=== PATIENT | female | born 1955 | race Caucasian/White ===

== ENCOUNTER → 2017-08-09 16:18 | Outpatient (CLI) | payer OTHER, SELFPAY ==
[2017-08-13 11:03] LABS: HPV HC, High Risk Positive (Negative)
== END ==
PROVIDERS: Family Provider Family Medicine; PCP Family Medicine; Visit Provider Obstetrics & Gynecology
DX: R87.610 Atypical squamous cells of undetermined significance on cytologic smear of cervix (ASC-US) (principal)
CPT/HCPCS: 87624; 88175; G0145

== ENCOUNTER → 2018-09-23 12:20 | Outpatient (CLI) | payer OTHER, SELFPAY ==
--- NOTE | 2018-09-23 12:22 | BI_ITS ---
MAMMOGRAPHY - BILATERAL SCREENING REASON FOR EXAM: Female, 62 years old. Routine annual screening examination. PERTINENT HISTORY: Grandmother with breast cancer. TECHNIQUE: Digital bilateral breast ignacio (3D mammographic acquisition) in the CC and MLO projections. 2-D mediolateral oblique (MLO) and craniocaudad (CC) views of both breasts were obtained. CAD: Full Field Digital Mammography with Computer Added Detection was performed. COMPARISON: Comparison is made with prior study of March 01, 2017. FINDINGS: Breast Composition: The breasts are heterogeneously dense, which may obscure small masses. There are no dominant masses or suspicious calcifications. No other significant abnormalities are identified. There has been no significant change since the prior study. BI/SCREENING MAMM (CAD), BILAT IMPRESSION: Stable bilateral screening mammogram. Yearly follow-up mammogram recommended. (A) ASSESSMENT CATEGORY: BIRADS Category 1: Negative. A letter regarding these results will be sent to the patient by the facility within 30 days. Approximately 10% of breast cancers are not detected by mammography. A normal mammogram should not delay biopsy of a clinically suspicious abnormality. [id number] Electronically Signed: Gabo Duque, at 13:48 EDT , Service support ,
== END ==
PROVIDERS: Family Provider Family Medicine; PCP Family Medicine; Referring Provider Obstetrics & Gynecology; Visit Provider Obstetrics & Gynecology
DX: Z12.31 Encounter for screening mammogram for malignant neoplasm of breast (principal)
CPT/HCPCS: 77063; 77067

== ENCOUNTER 2018-12-23 19:42 | Emergency (ER) | payer OTHER, SELFPAY ==
[2018-12-23 19:43] VITALS: BP 176/87; PULSE 109; RESP 16; TEMP 37.2; O2SAT 99; BMI 27.4
--- NOTE | 2018-12-23 20:26 | CT_ITS ---
STUDY: CT FACIAL BONES WITHOUT CONTRAST REASON FOR EXAM: Female, 63 years old. Trauma RADIATION DOSAGE (If Supplied By Facility): CTDIvol = ( 29.38 ) mGy, DLP = ( 540.11 ) mGycm TECHNIQUE: The patient was scanned in a multi detector CT scanner. Sagittal and coronal images were reconstructed. Individualized dose optimization techniques were used for this CT. COMPARISON: None. FINDINGS: Soft tissue swelling of the nose and premaxillary areas. Normal orbital kinsey and orbital contents. There is a mildly depressed fracture of the left nasal bone with associated soft tissue swelling.. Normal facial bones. There is no demonstrated fracture. Normal visualized paranasal sinuses. CT/Sinus/Facial Bone IMPRESSION: Acute mildly depressed fracture of the left nasal bone. No other acute facial bone fractures. Electronically Signed: Graham Aguirre MD at 20:53 EDT , Service support ,
--- NOTE | 2018-12-23 20:26 | CT_ITS ---
STUDY: CT BRAIN WITHOUT CONTRAST REASON FOR EXAM: Female, 63 years old. Trauma RADIATION DOSAGE (If Supplied By Facility): CTDIvol = ( 44.99 ) mGy, DLP = ( 762.36 ) mGycm TECHNIQUE: Transaxial CT imaging of the brain was performed without administration of intravenous contrast material. Individualized dose optimization techniques were used for this CT. COMPARISON: No relevant priors. FINDINGS: Normal soft tissue structures. Normal calvarium. Normal size ventricles and extra-axial spaces for the patient's age. Normal white matter tracts of the cerebral hemispheres. Normal basal ganglia and thalami. Normal brainstem. Normal cerebellum. There is no intracranial hemorrhage. There are no findings of an acute ischemic infarction. Acute depressed fracture of the nasal bones. Normal visualized paranasal sinuses. Partial opacification of left mastoid air cells which may be consistent with inflammatory changes CT/Brain/Head without Contrast IMPRESSION: Normal unenhanced CT scan of the brain. Acute depressed fracture of the nasal bones Electronically Signed: Graham Aguirre MD at 20:51 EDT , Service support ,
[2018-12-23] MEDS: HYDROcodone Bitartrate/Apap 5/325 Tablet PO (20:50)
--- NOTE | 2018-12-23 21:14 | ED.VISSUMM ---
- ER Visit Summary Date of Service: 12/23/18 Chief Complaint: [Head and facial injuries] History of Present Illness: The patient is a 63 F [presents to the emergency department after being struck in the face by her horse's head. Patient states that the horse had put his head down to look at a dog that was passing by when she tried to put something on top of the horse that had of the horse came up and struck her in the face. She got thrown to the ground. No loss of consciousness. Patient is up-to-date on tetanus. She denies any chest pain. She denies abdominal pain.] Physical Examination: [HEENT-PERRLA, EOMI. Cranial nerves II through XII grossly intact. TMs clear. Mucous membranes moist. No adenopathy. Patient has soft tissue swelling over the nose with tenderness palpation over the nasal bones. She has a small 3 mm laceration over the left aspect of the nose. Patient has small amount of blood from the right nasal vault without evidence of septal hematoma. No dental injury noted. Patient has some faint ecchymosis and bruising to the inferior portions of both orbits. She has no C-spine tenderness on palpation. Cardiovascular-regular rate and rhythm without murmur or ectopy Lungs-clear to auscultation, chest wall stable without crepitus or subcu emphysema Abdomen-normoactive bowel sounds, soft, nontender, no rebound or rigidity, no peritoneal signs. Extremities-intact ?4, normal range of motion, normal pulses, atraumatic] Test Results: [CT scan of the brain without contrast was unremarkable. CT scan of the facial bones showed a minimally displaced nasal bone fracture.] Emergency Department Course and Treatment: [He was given [place] for pain.] Treatment Plan: [Give patient a prescription for [place] for pain as well as a prescription for Augmentin. Patient will be given referral to ear nose and throat for follow-up] Disposition: [Discharged home stable condition] Impression: [Head injury Nasal bone fracture line small nasal laceration-no repair necessary] This note was generated with [employer] dictation software. It may contain incorrect words, spelling, and punctuation that were not noted in review of the chart prior to signing ED Disposition - Plan for ED Patient: Referrals: Edgar Garber DO [Primary Care Provider] -
--- NOTE | 2018-12-23 21:17 | DCINST.ED_ITS ---
ED Disposition - Plan for ED Patient: Instructions: FRACTURE, Nose (with X-Ray), HEAD INJURY, No Wake-Up (Adult) Prescriptions: Amox/Clavulanate Tablet [Augmentin Tablet] 875 mg PO Q12H #20 tab Prescription Printed Hydrocodone Bitart/Apap 5-325 [[place] 5MG-325MG] 1 tab PO Q4H PRN PRN 2 Days #14 tab PRN Reason: Pain Prescription Printed Referrals: Edgar Garber DO [Primary Care Provider] - Bar Marrero MD [STAFF PHYSICIAN] - 5-7 Days
[2018-12-23 21:34] VITALS: BP 150/76; PULSE 98; RESP 16; O2SAT 97
== END 2018-12-23 21:34 | disposition home or self-care (01) ==
LOC: ED 20:33
PROVIDERS: Emergency Provider Emergency Medicine; Family Provider Family Medicine; PCP Family Medicine
DX: S02.2XXA Fracture of nasal bones, initial encounter for closed fracture (principal); S01.21XA Laceration without foreign body of nose, initial encounter; W55.12XA Struck by horse, initial encounter; Y93.9 Activity, unspecified; Y92.9 Unspecified place or not applicable; K76.0 Fatty (change of) liver, not elsewhere classified
CPT/HCPCS: 70450; 70486; 99284

== ENCOUNTER 2020-04-26 23:01 | Emergency (ER) | payer OTHER, SELFPAY ==
[2020-04-26 23:02] VITALS: BP 169/100; PULSE 110; RESP 18; TEMP 36.4; O2SAT 100; BMI 27.1
--- NOTE | 2020-04-26 23:08 | ED.RN ---
NO OLD EKGS IN MUSE
--- NOTE | 2020-04-26 23:13 | EKG12_ITS ---
Test Reason : CP Blood Pressure : / mmHG Vent. Rate : 110 BPM Atrial Rate : 110 BPM P-R Int : 176 ms QRS Dur : 084 ms QT Int : 338 ms P-R-T Axes : 063 094 054 degrees QTc Int : [address] abnormality Abnormal ECG Confirmed by MIKE DAMON, CATHLEEN ([id number]), metropolitan editor LYNDSEY HERRERA ([id number]) on 04/30/2020 8:45:32 AM Referred By: ARSEN Confirmed By:CATHLEEN MCKEON MD
[2020-04-26 23:35] LABS: Absolute Lymphocyte Count 1.63 X10^3/uL (0.83-4.51); Absolute Neutrophil Count 8.4 X10^3/uL (2.0-7.7); Basophil# 0.04 X10^3/uL; Basophil% 0.4 % (0-1); Eosinophil# 0.16 X10^3/uL; Eosinophils% 1.4 % (0-5); Hematocrit 46.7 % (37-47); Hemoglobin 15.4 g/dL (12.0-15.0); Lymphocyte # 1.63 X10^3/ul (4.0); Lymphocyte % 14.7 % (19-41); Mean Platelet Vol. 11.2 fl (6.2-12.0); Monocyte# 0.77 X10^3/uL; NRBC Flagged by Analyzer 0 % (0-5); Neutrophil # 8.41 X10^3/uL (2.7-7.7); Platelet Count 209 K/mm3 (150-450); RBC Distribution Width CV 12.9 % (11.6-14.6); RBC Distribution Width SD 47.2 fl (35.1-43.9); Red Blood Count 4.67 M/mm3 (4.2-5.4); White Blood Count 11.1 K/mm3 (4.4-11.0)
[2020-04-26 23:37] LABS: Anion Gap 5 (5-15); BUN 13 mg/dL (7-18); BUN/Creat Ratio 12.7 RATIO (10-20); Calcium,Total 9.2 mg/dL (8.5-10.1); Chloride 109 mmol/L (98-107); Creatinine, Serum 1.02 mg/dL (0.55-1.02); EST Glomerular Filtration Rate 58 mL/min (>60); Est Glom Filt Rate - Afr Amer 70 mL/min (>60); Estimated Creatinine Clearance 46.85 ml/min; Glucose 122 mg/dL (74-106); Potassium 3.4 mmol/L (3.5-5.1); Sodium Level 144 mmol/L (136-145)
[2020-04-27] MEDS: LORazepam 2 MG/ML Syringe 0.5 MG IV (00:14)
[2020-04-27 01:30] VITALS: BP 130/77; PULSE 98; RESP 14; O2SAT 100
--- NOTE | 2020-04-27 02:00 | EKG12_ITS ---
Test Reason : REPEAT CP Blood Pressure : / mmHG Vent. Rate : 105 BPM Atrial Rate : 105 BPM P-R Int : 168 ms QRS Dur : 084 ms QT Int : 338 ms P-R-T Axes : 058 096 056 degrees QTc Int : 446 ms Sinus tachycardia Otherwise normal ECG Confirmed by MIKE DAMON, CATHLEEN ([id number]), field map editor LYNDSEY HERRERA ([id number]) on 04/30/2020 8:45:00 AM Referred By: Confirmed By:CATHLEEN MCKEON MD
--- NOTE | 2020-04-27 02:23 | ED.DCSUM_ITS ---
History of Present Illness Chief Complaint: Chest Pain Informant: Patient Onset: Hours Context: Sudden Onset Timing: Continuous Quality: Pain then pressure Location: Initially left scapula then left chest presently bilateral anterior chest Current Severity: Mild Maximum Severity: Moderate Worsened by: Nothing Relieved by: Nothing Associated Symptoms: Shortness of breath Narrative: Patient is a 64-year-old woman who presents with left scapular pain that radiated anteriorly and now involves the right and left chest anteriorly. She presently describes as pressure. Is no radiation. She does report shortness of breath. She states she gets short of breath when she is anxious and she is presently anxious. She denies fever, chills night sweats. She denies rhinorrhea, congestion postnasal drainage or sore throat. She denies history of VTE. She denies leg pain, swelling discoloration. She has no risk factors for VTE. She denies nausea, vomiting diarrhea. She denies hematemesis, melena medic easier. She denies history of peptic ulcer disease. She denies intolerance to greasy or fried foods. There is no history of trauma. Prior similar symptoms: No Recent Illness/Hospitalization: No - Past Medical History (1) Generalized anxiety disorder Status: Acute (2) History of hypercholesterolemia Status: Acute (3) Personal history of colonic polyps Status: Acute Past Medical History - Allergies and Home Meds Allergies/Adverse Reactions: Allergies estradiol [From Ortho-Prefest] Allergy (Verified 04/26/20 23:02) Unknown ibuprofen [From Advil] Allergy (Verified 04/26/20 23:02) Hives norgestimate [From Ortho-Prefest] Allergy (Verified 04/26/20 23:02) Unknown plastic tape/bandaids Allergy (Uncoded 04/26/20 23:02) Rash Primary Care Physician: Edgar Garber DO [Primary Care Provider] - Prior records reviewed: Yes Surgical History: - - Previous colonoscopies with polypectomy Lives: Spouse/ Significant Other Smoking Status: Former smoker Alcohol: Rare Drugs: None Review of Systems General: Denies: Chills, Fever, Malaise, Subjective, Sweats, Weight loss Eyes: Denies: Visual changes - bilaterally, Blurred Vision - bilaterally ENT: Denies: Bilateral ear pain, Rhinorrhea, Sore throat Cardiovascular: Reports: Chest pain. Denies: Palpitations, Heart racing Respiratory: Reports: Dyspnea. Denies: Cough, Sputum, Dyspnea on exertion, Orthopnea, Paroxysmal nocturnal dyspnea Gastrointestinal: Denies: Abdominal pain, Nausea, Vomiting, Diarrhea, Melena, Hematochezia Genitourinary: Denies: Dysuria, Frequency Musculoskeletal: Reports: Back pain. Denies: Myalgias, Arthralgias, Neck pain, Swelling, Extremity Pain Skin: Denies: Rash, Wounds Neurological: Denies: Headache, Weakness Psych: Reports: Anxiety. Denies: Depression, Suicidal thoughts Endocrine: Denies: Polyuria, Polydipsia Physical Exam Vital Signs/Narrative: Vital Signs Temp Pulse Resp BP Pulse Ox 04/27/20 01:30 98 14 130/77 H 100 04/26/20 23:02 97.6 F L 110 H 18 169/100 H 100 Inital Vital Signs reviewed: Yes - Blood pressure is elevated. She states she has whitecoat syndrome General: Well nourished, Well developed, - - Does appear slightly anxious. Head: Normocephalic, Atraumatic Eyes: Perrl, EOMI. Negative for: Pale conjunctiva, Scleral icterus ENT: No rhinorrhea, TM's clear Neck: Supple, Nontender, No lymphadenopathy, No JVD Cardiovascular: Regular rhythm, No murmurs, Normal S1, Normal S2, Tachycardia Respiratory: No distress, CTA bilaterally, Chest nontender Abdomen: Soft, Nontender, Nondistended, Normal bowel sounds Back: Nontender, Normal Inspection Extremities: Nontender, No edema, - - There is no asymmetry, swelling, discoloration, leg vein distention, palpable cords or tenderness along the distribution of the deep venous system. Skin: Normal color, No rash, No Trauma, - - He has discoloration of her fingers due to Raynaud's phenomenon. Negative for: Cyanosis, Diaphoresis, Jaundice Neurological: Alert, Oriented x3, Cranial nerves II-XII grossly intact, Normal Strength, Normal Sensation Psychological: - - Patient does appear anxious. Diagnostic/Tx/Re-eval Laboratory Results 04/26/20 04/26/20 04/27/20 23:04 23:04 02:00 WBC 11.1 H RBC 4.67 Hgb 15.4 H Hct 46.7 MCV 100.0 H MCH 33.0 H MCHC 33.0 RDW Std Deviation 47.2 H RDW Coeff of Ashwin 12.9 Plt Count 209 MPV 11.2 Immature Gran % (Auto) 0.500 Neut % (Auto) 76.0 H Lymph % (Auto) 14.7 L Ford % (Auto) 7.0 Eos % (Auto) 1.4 Baso % (Auto) 0.4 Absolute Neuts (auto) 8.4 H Absolute Lymphs (auto) 1.63 Nucleated RBC % 0 Sodium 144 Potassium 3.4 L Chloride 109 H Carbon Dioxide 30.0 Anion Gap 5 BUN 13 Creatinine 1.02 Estim Creat Clear Calc 46.85 Est GFR (MDRD) Af Amer 70 Est GFR (MDRD) Non-Af 58 L BUN/Creatinine Ratio 12.7 Glucose 122 H Calcium 9.2 Troponin I < 0.015 < 0.015 3-hour troponin is less than 0.015 with a delta of 0. Plan is to discharge to home. - EKG Initial EKG Interpretation: Sinus Tachycardia - Sinus tachycardia with a ventricular rate of 110. IA interval is 176 ms. QRS duration 84 ms. QT duration 338 ms. [place] is normal. There is artifact noted. - Medical Decision Making Differential diagnosis includes spontaneous pneumothorax, pain of unknown etiology, cardiac ischemia, peptic ulcer disease. EKG appropriate blood work was ordered. Patient declined chest x-ray. Because she is sick 4 years of age former smoker with history of hypercholesterolemia a 3-hour troponin was ob tained. Her heart score is a 3. She did receive aspirin. ED Disposition - Plan for ED Patient: Disposition: Home or Assisted Living Diagnosis: Anterior chest wall pain Instructions: ED Chest Pain Atypical Unkn Cause Referrals: Edgar Garber DO [Primary Care Provider] - 3-5 Days
[2020-04-27 02:37] VITALS: BP 134/73; PULSE 106; RESP 16; O2SAT 98
== END 2020-04-27 02:45 | disposition home or self-care (01) ==
PROVIDERS: Emergency Provider Emergency Medicine; PCP Family Medicine
DX: R07.89 Other chest pain (principal); E78.00 Pure hypercholesterolemia, unspecified; F41.1 Generalized anxiety disorder; Z87.891 Personal history of nicotine dependence
CPT/HCPCS: 80048; 84484; 85025; 93005; 96374; 99284; A4216

== ENCOUNTER → 2020-07-08 13:38 | Outpatient (CLI) | payer OTHER, SELFPAY ==
--- NOTE | 2020-07-08 13:40 | BI_ITS ---
MAMMOGRAPHY - BILATERAL SCREENING REASON FOR EXAM: Female, 64 years old. Routine annual screening examination. PERTINENT HISTORY: Grandmother with breast cancer. TECHNIQUE: Digital bilateral breast marisabel (3D mammographic acquisition) in the CC and MLO projections. 2-D mediolateral oblique (MLO) and craniocaudad (CC) views of both breasts were obtained. CAD: Full Field Digital Mammography with Computer Added Detection was performed. COMPARISON: Comparison is made with prior study dated 09/23/2018 and 03/01/2017. FINDINGS: Breast Composition: The breasts are heterogeneously dense, which may obscure small masses. There are no dominant masses or suspicious calcifications. No other significant abnormalities are identified. There has been no significant change since the prior study. BI/SCRN MAMM (CAD)W/MARISABEL BILAT IMPRESSION: Stable bilateral screening mammogram. Yearly follow-up mammogram recommended. (A) ASSESSMENT CATEGORY: BIRADS Category 1: Negative. A letter regarding these results will be sent to the patient by the facility within 30 days. Approximately 10% of breast cancers are not detected by mammography. A normal mammogram should not delay biopsy of a clinically suspicious abnormality. [id number] Electronically Signed: Gabo Duque MD at 14:44 EST , Service support ,
== END ==
PROVIDERS: PCP Family Medicine; Referring Provider Student in an Organized Health Care Education/Training Program; Visit Provider Student in an Organized Health Care Education/Training Program
DX: Z12.31 Encounter for screening mammogram for malignant neoplasm of breast (principal)
CPT/HCPCS: 77063; 77067

== ENCOUNTER → 2020-12-26 09:30 | Outpatient (CLI) | payer OTHER, SELFPAY ==
--- NOTE | 2020-12-26 09:49 | BI_ITS ---
MAMMOGRAPHY - UNILATERAL DIAGNOSTIC: LEFT BREAST REASON FOR EXAM: Female, 65 years old. One-month history of a mild left nipple inversion. PERTINENT HISTORY: Grandmother with breast cancer. TECHNIQUE: Digital unilateral breast ignacio (3D mammographic acquisition) in the CC and MLO projections. 2-D mediolateral oblique (MLO) and craniocaudad (CC) views of both breasts were obtained. CAD: Full Field Digital Mammography with Computer Added Detection was performed. COMPARISON: Comparison is made with prior examination dated 07/08/2020 and 09/23/2018. FINDINGS: Breast Composition: The breasts are heterogeneously dense, which may obscure small masses. There are no dominant masses or suspicious calcifications. No other significant abnormalities are identified. There has been no significant change since the prior study. BI/DIAG MAMM W/CAD, UNILAT IMPRESSION: Stable unilateral diagnostic mammogram. With the patient''s history of left nipple inversion, correlation with ultrasound is recommended. ASSESSMENT CATEGORY: BIRADS Category 0: Incomplete. Need additional imaging evaluation. A letter regarding these results will be sent to the patient by the facility within 30 days. Approximately 10% of breast cancers are not detected by mammography. A normal mammogram should not delay biopsy of a clinically suspicious abnormality. Electronically Signed: Gabo Duque MD at 10:19 EDT , Service support ,
--- NOTE | 2020-12-26 09:51 | US_ITS ---
STUDY: ULTRASOUND BREAST - LEFT REASON FOR EXAM: Female, 65 years old. Slight inversion of the left nipple. TECHNIQUE: Axial and longitudinal images of the LEFT breast were performed with a high resolution ultrasound transducer. # OF IMAGES: 77 COMPARISON: Comparison is made with prior mammogram done earlier in the day. FINDINGS: LEFT Breast: There is evidence of a 0.8 cm x 1.3 cm x 0.9 cm hypoechoic irregular solid mass in the retroareolar region of the left breast. Biopsy is recommended. US/Breast Limited Unilateral IMPRESSION: 0.8 cm x 1.3 cm x 0.9 cm hypoechoic irregular solid mass in the retrocrural areolar region of the left breast as described. Biopsy is recommended. ASSESSMENT CATEGORY: BIRADS Category 4: Suspicious - Biopsy Should Be Considered. A letter regarding these results will be sent to the patient by the facility within 30 days. Electronically Signed: Gabo Duque MD at 11:07 EDT , Service support ,
== END ==
PROVIDERS: PCP Internal Medicine; Referring Provider Internal Medicine; Visit Provider Internal Medicine
DX: N63.20 Unspecified lump in the left breast, unspecified quadrant (principal); N64.59 Other signs and symptoms in breast
CPT/HCPCS: 76642; 77061; 77065; G0279

== ENCOUNTER → 2021-01-24 12:23 | Outpatient (CLI) | payer OTHER, SELFPAY ==
--- NOTE | 2021-01-24 12:27 | US_ITS ---
STUDY: ULTRASOUND BREAST - LEFT REASON FOR EXAM: Female, 65 years old. Ultrasound guided core biopsy of the suspicious nodule in the left breast. TECHNIQUE: Axial and longitudinal images of the LEFT breast were performed with a high resolution ultrasound transducer. # OF IMAGES: 17 COMPARISON: Comparison is made with prior ultrasound dated 12/26/2020. FINDINGS: LEFT Breast: Under direct sonographic guidance, the surgeon performed core biopsies of the 1.3 cm x 0.9 cm x 0.8 cm irregular hypoechoic solid nodule in the retroareolar region of the breast. A tissue clip marker is seen within. US/US Breast Biopsy 1st Lesion IMPRESSION: Successful ultrasound-guided core biopsies of the suspicious nodule in the breast in the retroareolar location. ASSESSMENT CATEGORY: BIRADS Category 4: Suspicious - Biopsy Should Be Considered. A letter regarding these results will be sent to the patient by the facility within 30 days. Electronically Signed: Gabo Duque MD at 13:38 EDT , Service support ,
--- NOTE | 2021-01-24 12:50 | BRBX_PTH ---
PATIENT: ARNULFO LOZA LOC: [facility] U#:[id number] AGE/SX: 69/F ROOM: RE01/24/[address]: Dr. Darnell Wooten MD : [id number] BED: DIS: SPEC #: [id number] RECD: 01/24/21 13:42 STATUS: PARAMJIT REAllyn #: [id number] JOCY: 01/24/21 12:[address]: Darnell Wooten DEPT: SURGICAL PATHOLOGY RECD BY: Lanette Mancia ENTERED: 01/27/21 10:04 SP TYPE: BREAST BX OTHR DR: Dr. Mindi Ibrahim DO Tissues: Left breast, NOS Procedures: Surgery Specimen Level IV HEADER OPERATION: Left breast biopsy PRE-OP DIAGNOSIS: Left breast mass TISSUE SUBMITTED: Left retroareolar ISCHEMIC TIME: 1 minute FIXATION TIME: 79 hours MICROSCOPIC DIAGNOSIS Left breast, retroareolar mass, core biopsy: Fragments of fatty benign breast tissue with ductal dilatation and chronic inflammation. Negative for atypia or malignancy. See comment. SJ:elodia 01/28/2021 COMMENT Correlation with clinical, radiologic findings and appropriate follow up are necessary. MICROSCOPIC DESCRIPTION Slides are reviewed. GROSS DESCRIPTION Received in fixative is one container labeled with the patient's name and designated left breast. The specimen consists of two elongated fragments of rodas tissue that in aggregate measure 1 x 0.5 x <0.1 cm. The specimen is totally submitted in one cassette. / AM:elodia 01/27/21 TC:5 CPT: 93776
--- NOTE | 2021-01-24 12:52 | PCM.OPRPT ---
Problems Associated Problem List Diagnoses (1) Abnormal mammogram of left breast: Report of Operation Date of Procedure: 01/24/21 Pre-Operative Diagnosis: Abnormal mammogram left breast Post-Operative Diagnosis: Same Surgery/Procedure Performed:: Ultrasound-guided needle core biopsy of abnormal mammogram to left breast Surgeon: Darnell Wooten bowling ball molder: None Type of Anesthesia: Local Specimen's removed: Left breast biopsy Drains: None Estimated Blood Loss (mL): < 5 cc Description of Procedure: Patient was brought into the ultrasound room. Placed in the supine position. Ultrasound of the left breast in the retroareolar region showed the lesion. Prepped the skin with alcohol and then chlorhexidine. 1% lidocaine plain was injected. Local was injected down to the lesion. Skin quinten was made. Under ultrasound guidance a single needle core biopsy was obtained. Under ultrasound guidance a small titanium clip was placed. Sterile dressings were applied. Patient tolerated the procedure well. Admit VTE Documentation VTE Present on Admission: No VTE Mechan Device Prophylaxis: None VTE Pharm Prophylaxis ordered?: No Reason prophylaxis not ordered:: Treatment Not Indicated
== END ==
PROVIDERS: PCP Internal Medicine; Referring Provider Surgery; Visit Provider Surgery
DX: R92.8 Other abnormal and inconclusive findings on diagnostic imaging of breast (principal)
CPT/HCPCS: 19083; 88305

== ENCOUNTER → 2021-03-25 13:48 | Outpatient (CLI) | payer OTHER, SELFPAY ==
--- NOTE | 2021-03-25 14:06 | BD_ITS ---
STUDY: DUAL ENERGY X-RAY ABSORPTIOMETRY / DXA REASON FOR EXAM: Female, 65 years old. 627.8Menopausal postmenopausalBONE DENSITY REASON FOR EXAM TECHNIQUE: Bone Mineral Density (BMD) measurements of lumbar spine and bilateral hips were obtained. COMPARISON: None. FINDINGS: Lumbar Spine (L1-L4): g/cm2 (0.741) / T-score (-3.3) / Z-score (-1.2) Findings are suggestive of osteoporosis with a high fracture risk. Left Femur Total: g/cm2 (0.702) / T-score (-2.0) / Z-score (-0.6) Left Femoral Neck: g/cm2 (0.600) / T-score (-2.2) / Z-score (-0.6) Right Femur Total: g/cm2 (0.728) / T-score (-1.8) / Z-score (-0.4) Right Femoral Neck: g/cm2 (0.604) / T-score (-2.2) / Z-score (-0.6) BD/Dexa Bone Density Study IMPRESSION: The patient is considered osteoporotic as outlined below according to World Gary Organization (WHO) criteria with a high fracture risk. Reference Information: The T-score is the number of standard deviations above or below the standard which is normal for young adults at their peak bone mineral density. The World Health Organization (WHO) interprets the T-scores as follows: Above -1 Normal bone density Between -1 and -2.5 Osteopenia Equal to / or below -2.5 Osteoporosis As a practical clinical guideline, osteopenia may be graded as follows: Mild -1 through -1.5 Moderate -1.6 through -2.0 Severe -2.1 through -2.4 The Z-score is the number of standard deviations above or below age-matched controls. A Z-score of less than -1.5 would be considered abnormal. References: 1. NIH Osteoporosis and Related Bone Diseases www osteo.org 2. International Society for Clinical Densitometry www iscd.org 3. National Osteoporosis Foundation www nof.org Electronically Signed: Gabo Duque MD at 9:26 EDT , Service support ,
== END ==
PROVIDERS: PCP Internal Medicine; Referring Provider Internal Medicine; Visit Provider Internal Medicine
DX: M81.0 Age-related osteoporosis without current pathological fracture (principal); Z78.0 Asymptomatic menopausal state
CPT/HCPCS: 77080

== ENCOUNTER → 2021-10-27 | Outpatient (CLI) | payer OTHER, SELFPAY ==
--- NOTE | 2021-10-27 09:24 | US_ITS ---
STUDY: ABDOMINAL ULTRASOUND - RIGHT UPPER QUADRANT REASON FOR VISIT: Female, 66 years old FATTY LIVER TECHNIQUE: Ultrasound evaluation of the right upper quadrant was performed with real-time and static sanders-scale imaging. TECHNICAL QUALITY: Adequate. COMPARISON: None. FINDINGS: Liver: The liver measures 17.1 cm. There is increased echogenicity consistent with fatty infiltration. The bile ducts are within normal limits. There is hepatic color flow. The direction of portal flow is hepatopetal. There is no demonstrated mass lesion. Gallbladder: Normal distended gallbladder. The gallbladder wall measures 2.2 mm. There is a negative sonographic Esqueda''s sign. There is no pericholecystic fluid. There are no gallstones. Common Bile Duct (C.B.D.): The common bile duct measures 4.8 mm. Pancreas: Normal size of the head, body and tail of the pancreas. There is normal echogenicity of the pancreas. There is no demonstrated pancreatic mass or cyst. Right Kidney: Normal size of the right kidney. The right kidney measures 10.4 cm x 5.2 cm x 4.5 cm. Normal renal cortex. The right cortex measures 1.6 cm. There is no demonstrated renal mass or cyst. There is no right hydronephrosis. US/Abdomen Limited IMPRESSION: Borderline hepatomegaly. Fatty infiltration of the liver. Electronically Signed: Gabo Duque MD at 12:19 EDT ,
== END | disposition home or self-care (01) ==
PROVIDERS: PCP Internal Medicine; Visit Provider Internal Medicine
DX: K76.0 Fatty (change of) liver, not elsewhere classified (principal)
CPT/HCPCS: 76705

== ENCOUNTER → 2025-05-25 | Outpatient (CLI) | payer MEDICARE, OTHER, SELFPAY | END | disposition home or self-care (01) | LOC: LABSPEC 10:27 | PROVIDERS: PCP Internal Medicine; Referring Provider Internal Medicine; Visit Provider Internal Medicine | DX: R82.90 Unspecified abnormal findings in urine (principal) | CPT/HCPCS: 87077; 87086; 87088; 87186 ==